=== PATIENT | male | born 1935 | race Caucasian/White ===

== ENCOUNTER 2016-05-17 14:32 | Inpatient (IN) | payer OTHER ==
[2016-05-17] MEDS ORDERED: ALBUTEROL SO4 0.083% IH SOL 2.5 MG/3 ML VIAL.NEB. NEB ONE ×2 (14:44→15:07)
--- NOTE | 2016-05-17 14:59 | PDOC ---
History of Present Illness - History of Present Illness Initial Comments: 05/17/16 15:07 The patient is a 81 year old male with a PHx of BPH, HTN, HLD, CHF, COPD (2 L nasal cannula), gout, GERD who presents to the ED with a productive cough for 3- 4 days and bilateral lower extremity edema for 2 days. Per , the patient seems short of breath and is working harder to breathe. The patient denies fever , chills, nausea, vomiting, diarrhea. He denies chest pain. PCP/Drawing In Machine Tender Helper: Dr. Juli Dove <Berkley Shields - Last Filed: 05/17/16 15:07> - General History Source: Patient Exam Limitations: No Limitations <Darius Pta - Last Filed: 05/17/16 17:40> - General Chief Complaint: Shortness of Breath Stated Complaint: SHORTNESS OF BREATH,EDEMA LE,COUGH Time Seen by Provider: 05/17/16 14:36 Past History <Berkley Shields - Last Filed: 05/17/16 15:07> - Past Medical History Anemia: No Asthma: Yes (2005) Cancer: No Cardiac Disorders: Yes (AORTIC STENOSIS,CARDIOMYOPATHY,CHF,AFIB/FLUTTER) CVA: No COPD: Yes (2005) CHF: Yes Dementia: No Diabetes: No GI Disorders: No Disorders: Yes (BPH) HTN: Yes Hypercholesterolemia: Yes Liver Disease: No Seizures: No Thyroid Disease: No - Surgical History Abdominal Surgery: No Appendectomy: Yes () Cardiac Surgery: No Cholecystectomy: No Lung Surgery: No Neurologic Surgery: No Orthopedic Surgery: No - Psycho/Social/Smoking Cessation Hx Anxiety: No Suicidal Ideation: No Smoking History: Former smoker Have you smoked in the past 12 months: No Number of Cigarettes Smoked Daily: 0 If you are a former smoker, when did you quit?: YEARS AGO Information on smoking cessation initiated: No Hx Alcohol Use: No Drug/Substance Use Hx: No Substance Use Type: None Hx Substance Use Treatment: No <Darius Pat - Last Filed: 05/17/16 17:40> - Past Medical History Allergies/Adverse Reactions: Allergies Allergy/AdvReac Type Severity Reaction Status Date / Time No Known Drug Allergies Allergy Verified 05/17/16 14:33 Home Medications: Ambulatory Orders Atorvastatin Ca [Lipitor] 40 mg PO HS 10/14/11 Budesonide/Formeterol Fumarate [SYMBICORT 160/4.5mcg -] 1 dose IH DAILY Losartan Potassium [Cozaar] 50 mg PO DAILY 10/14/11 Potassium Chloride [Klor-Con] 20 meq PO DAILY 10/14/11 Terazosin HCl 2 mg PO HS 10/14/11 Tiotropium [place] [Spiriva] 1 inh IH DAILY 10/14/11 Furosemide [Lasix -] 60 mg PO DAILY 09/29/13 Colchicine 0.6 mg PO DAILY #5 tablet 12/09/13 Diltiazem HCl [Diltiazem 24Hr Cd] 240 mg PO DAILY 11/26/14 Albuterol Sulfate Inhaler - [Ventolin Hfa Inhaler -] 1 inh PO QID 05/17/16 Cilostazol [Pletal -] 100 mg PO DAILY 05/17/16 Warfarin Sodium [Coumadin] 5.5 mg PO HS 05/17/16 Review of Systems - Review of Systems Comments:: 05/17/16 15:07 GENERAL/CONSTITUTIONAL: No fever or chills. No weakness. HEAD, EYES, EARS, NOSE AND THROAT: No change in vision. No ear pain or discharge. No sore throat. CARDIOVASCULAR: +shortness of breath, bilateral lower extremity edema. No chest pain RESPIRATORY: + productive cough, No wheezing, or hemoptysis. GASTROINTESTINAL: No nausea, vomiting, diarrhea or constipation. GENITOURINARY: No dysuria, frequency, or change in urination. MUSCULOSKELETAL: No joint or muscle swelling or pain. No neck or back pain. SKIN: No rash NEUROLOGIC: No headache, vertigo, loss of consciousness, or change in strength/ sensation. ENDOCRINE: No increased thirst. No abnormal weight change. HEMATOLOGIC/LYMPHATIC: No anemia, easy bleeding, or history of blood clots. ALLERGIC/IMMUNOLOGIC: No hives or skin allergy. <Berkley Shields - Last Filed: 05/17/16 15:07> *Physical Exam - Vital Signs Last Vital Signs Temp Pulse Resp BP Pulse Ox 98.2 F 75 20 161/81 90 L 05/17/16 14:33 05/17/16 14:33 05/17/16 14:33 05/17/16 14:33 05/17/16 14:33 - Physical Exam Comments: 05/17/16 15:07 GENERAL: Awake, alert, and fully oriented, in no acute distress HEAD: No signs of trauma EYES: PERRLA, EOMI, sclera anicteric, conjunctiva clear ENT: Auricles normal inspection, hearing grossly normal, nares patent, oropharynx clear without exudates. Moist mucosa NECK: Normal ROM, supple, no lymphadenopathy, JVD, or masses LUNGS: Rales at the bases, bilaterally. Tachypneic to mid 20s. No wheezes, and no crackles HEART: Regular rate and rhythm, normal S1 and S2, no murmurs, rubs or gallops ABDOMEN: Soft, nontender, normoactive bowel sounds. No guarding, no rebound. No masses EXTREMITIES: 2+ pitting edema in bilateral lower extremities. Normal range of motion. No clubbing or cyanosis. No cords, erythema, or tenderness NEUROLOGICAL: Cranial nerves II through XII grossly intact. Normal speech, normal gait SKIN: Warm, Dry, normal turgor, no rashes or lesions noted. <Berkley Shields - Last Filed: 05/17/16 15:07> - Vital Signs Last Vital Signs Temp Pulse Resp BP Pulse Ox 98.2 F 75 20 161/81 90 L 05/17/16 14:33 05/17/16 14:33 05/17/16 14:33 05/17/16 14:33 05/17/16 14:33 <Darius Pat - Last Filed: 05/17/16 17:40> Heart Score/ECG Review #1 ECG reviewed & interpreted by me at: 14:35 05/17/16 15:09 NSR with 1st degree AV block AL 268 msec, Q wave III, TWI V3-V6, no std/pamela, TWI I, avL, QTC 450 msec <Darius Pat - Last Filed: 05/17/16 17:40> ED Treatment Course - LABORATORY CBC & Chemistry Diagram: 05/17/16 15:00 05/17/16 15:00 <Darius Pat - Last Filed: 05/17/16 17:40> Medical Decision Making - Medical Decision Making 05/17/16 15:17 A portion of this note was documented by scribe services under my direction. I have reviewed the details of the note, within reason, and agree with the documentation with the following case summary and management plan written by me. Patient treated in the ED. Nursing notes are reviewed and incorporated into the medical decision-making. Vital signs reviewed. Peripheral IV access obtained by the nurse, laboratory studies are drawn and sent, reviewed and interpreted by myself. Vital Signs Temp Pulse Resp BP Pulse Ox 98.2 F 75 20 161/81 90 L 05/17/16 14:33 05/17/16 14:33 05/17/16 14:33 05/17/16 14:33 05/17/16 14:33 81-year-old male with past medical history of hypertension, hyperlipidemia, congestive heart failure on Lasix 60 mg daily, COPD on 2 L nasal cannula at home , BiPAP at night presents with cough and shortness of breath for 4 days. The patient has noted some clearish productive cough in addition to increasing lower extremity edema and increasing shortness of breath. Denies chest pain or fevers or sick contacts. He reports adherence to his medications. We will need to rule out CHF given that he has lower extremity edema plus bibasilar rales. We'll also obtain blood cultures and a chest x-ray to rule out pneumonia. Within the differential is COPD, acute coronary syndrome. Will ultimately need to admit the patient to the hospital for further evaluation. Patient was on room air 79% but improved to 90% on 4 L nasal cannula. 05/17/16 17:39 CBC, BMP 05/17/16 15:00 05/17/16 15:00 CMP Sodium 141 mmol/L (136-145) 05/17/16 15:00 Potassium 3.2 mmol/L (3.5-5.1) L 05/17/16 15:00 Chloride 94 mmol/L (98-107) L 05/17/16 15:00 Carbon Dioxide 37 mmol/L (22-28) H 05/17/16 15:00 Anion Gap 10 (8-16) 05/17/16 15:00 BUN 18 mg/dl (7-18) 05/17/16 15:00 Creatinine 1.2 mg/dl (0.6-1.3) D 05/17/16 15:00 Creat Clearance w eGFR 58.40 (>60) 05/17/16 15:00 Random Glucose 93 mg/dl (74-106) D 05/17/16 15:00 Lactic Acid 1.278 mmol/L (0.4-2.0) 05/17/16 15:00 Calcium 8.8 mg/dl (8.4-10.2) 05/17/16 15:00 Magnesium 1.8 mg/dL (1.8-2.4) 05/17/16 15:00 Total Bilirubin 0.4 mg/dl (0.2-1.0) 05/17/16 15:00 AST 18 U/L (10-42) 05/17/16 15:00 ALT 14 U/L (10-40) D 05/17/16 15:00 Alkaline Phosphatase 74 U/L (32-92) 05/17/16 15:00 Creatine Kinase 61 IU/L (38-174) 05/17/16 15:15 Troponin I 0.03 ng/ml (0.03-0.50) 05/17/16 15:15 B-Natriuretic Peptide 439.13 pg/ml (5-450) 05/17/16 15:00 Total Protein 6.5 g/dl (6.4-8.3) 05/17/16 15:00 Albumin 3.7 g/dl (3.5-5.0) 05/17/16 15:00 Labs reviewed. Pt given 60 mg IV lasix. Chest xray reviewed by me, pending official read. Appears to have pulmonary congestion. Seems to be breathing more comfortably at 4L NC with O2 saturation of 90% and with lasix. Also noted with mild hypokalemia. Oral repletion ordered. Case discussed with DR. Parks. Will admit to telemetry admission. Case discussed in detail with admitting physician including history, physical exam and ancillary studies. Admitting physician has assumed care for the patient, will follow all pending diagnostics and will complete the evaluation and treatment. <Darius Pat - Last Filed: 05/17/16 17:40> *DC/Admit/Observation/Transfer - Attestations Scribe Attestion: 05/17/16 15:07 Documentation prepared by Berkley Shields, acting as director global medical affairs for Darius Pat MD. <Berkley Shields - Last Filed: 05/17/16 15:07> - Discharge Dispostion Admit: Yes <Darius Pat - Last Filed: 05/17/16 17:40> Diagnosis at time of Disposition: Shortness of breath - Discharge Dispostion Condition at time of disposition: Fair
[2016-05-17 15:14] LABS: BASOPHIL 0.7 % (0-2.0); EOSINOPHIL 1.7 % (0-4.5); MCH 26.5 pg (25.7-33.7); MCHC 32.8 g/dl (32.0-35.9); MEAN CELL VOLUME 80.8 fl (80-96); MEAN PLT VOLUME 7.1 fl (7.5-11.1); PLATELET COUNT 272 K/MM3 (134-434); RDW 15.9 % (11.9-15.9); WHITE BLOOD COUNT 6.4 K/mm3 (4.0-10.0)
[2016-05-17 15:28] LABS: ACTIVATED PTT 34.5 SECONDS (24.0-38.9)
[2016-05-17 15:52] LABS: INR 1.77 (0.82-1.09); PROTHROMBIN TIME (PATIENT) 19.6 SEC (10.2-13.0)
[2016-05-17 15:53] LABS: ALBUMIN 3.7 g/dl (3.5-5.0); ALK PHOS 74 U/L (32-92); ANION GAP 10 (8-16); BILIRUBIN,TOTAL 0.4 mg/dl (0.2-1.0); CO2 37 mmol/L (22-28); CREATININE 1.2 mg/dl (0.6-1.3); GLUCOSE,RANDOM 93 mg/dl (74-106); MAGNESIUM 1.8 mg/dL (1.8-2.4); SGOT/AST 18 U/L (10-42); SGPT/ALT 14 U/L (10-40); TOT PROT 6.5 g/dl (6.4-8.3)
[2016-05-17 16:22] LABS: CALCIUM 8.8 mg/dl (8.4-10.2)
[2016-05-17] MEDS ORDERED: FUROSEMIDE 40 MG/4 ML INJECTABLE VIAL IVPUSH ONE (16:34)
[2016-05-17] MEDS ORDERED: POTASSIUM CHLORIDE TABS 20 MEQ TABLET.ER (FP) PO ONE ×2 (16:34→16:42)
[2016-05-17] MEDS ORDERED: FUROSEMIDE 40 MG/4 ML INJECTABLE VIAL ONE (16:42)
[2016-05-17 17:13] LABS: TROPONIN I (DFP) 0.03 ng/ml (0.03-0.50)
[2016-05-17 18:08] LABS: URINE APPEARANCE Clear; URINE BILIRUBIN Negative (NEGATIVE); URINE BLOOD Negative (NEGATIVE); URINE GLUCOSE (UA) Negative (NEGATIVE); URINE KETONE Negative (NEGATIVE); URINE LEUK ESTERASE Negative (NEGATIVE); URINE NITRITE Negative (NEGATIVE); URINE UROBILINOGEN 1.0 E.U/dl (0.2-1.0)
[2016-05-17 18:12] LABS: URINE COLOR YELLOW; URINE PROTEIN 2+ (NEGATIVE)
[2016-05-17 18:49] LABS: URINE BACTERIA FEW /hpf (NEGATIVE); URINE RBC 0-2 /hpf (0-3); URINE WBC 0-1 (3-5)
[2016-05-17 23:46] VITALS: BMI 35.2
--- NOTE | 2016-05-17 23:49 | HP ---
Admitting History and Physical - Primary Care Physician PCP: Nicholas Parks - Admission Chief Complaint: sob History of Present Illness: The patient is a 81 year old male with a PHx of BPH, HTN, HLD, CHF, COPD (2 L nasal cannula), gout, GERD who presents to the ED with a productive cough for 3- 4 days and bilateral lower extremity edema for 2 days. Per , the patient seems short of breath and is working harder to breathe. The patient denies fever , chills, nausea, vomiting, diarrhea. He denies chest pain. PCP/Chef Assistant: Dr. Juli Dove - Past Medical History Cardiovascular: Yes: CHF, HTN, Hyperlipdemia Pulmonary: Yes: COPD Renal/: Yes: BPH - Advance Directives Advance Directives: Yes: Health Care Proxy - Smoking History Smoking history: Former smoker Have you smoked in the past 12 months: No Aproximately how many cigarettes per day: 0 If you are a former smoker, when did you quit?: YEARS AGO - Alcohol/Substance Use Hx Alcohol Use: No Home Medications - Allergies Allergies/Adverse Reactions: Allergies Allergy/AdvReac Type Severity Reaction Status Date / Time No Known Drug Allergies Allergy Verified 05/17/16 14:33 - Home Medications Home Medications: Ambulatory Orders Atorvastatin Ca [Lipitor] 40 mg PO HS 10/14/11 Budesonide/Formeterol Fumarate [SYMBICORT 160/4.5mcg -] 1 dose IH DAILY Losartan Potassium [Cozaar] 50 mg PO DAILY 10/14/11 Potassium Chloride [Klor-Con] 20 meq PO DAILY 10/14/11 Terazosin HCl 2 mg PO HS 10/14/11 Tiotropium [place] [Spiriva] 1 inh IH DAILY 10/14/11 Colchicine 0.6 mg PO DAILY #5 tablet 12/09/13 Diltiazem HCl [Diltiazem 24Hr Cd] 240 mg PO DAILY 11/26/14 Albuterol Sulfate Inhaler - [Ventolin HFA Inhaler -] 1 inh PO QID 05/17/16 Cilostazol [Pletal -] 100 mg PO DAILY 05/17/16 Warfarin Sodium [Coumadin] 5.5 mg PO HS 05/17/16 Furosemide [Lasix -] 80 mg PO DAILY #60 tablet 05/19/16 Physical Examination Vital Signs: Vital Signs Temperature 98.5 F 05/17/16 22:23 Pulse Rate 62 05/17/16 22:23 Respiratory Rate 20 05/17/16 22:23 Blood Pressure 139/75 05/17/16 22:23 O2 Sat by Pulse Oximetry (%) 95 05/17/16 22:23 Constitutional: Yes: No Distress Neck: Yes: Supple Cardiovascular: Yes: Regular Rate and Rhythm Respiratory: Yes: Rhonchi Gastrointestinal: Yes: Normal Bowel Sounds Extremities: Yes: WNL Neurological: Yes: Alert, Oriented Problem List - Problems (1) Shortness of breath Assessment/Plan: could be fluid overload on lasix prn duo nebs Code(s): R06.02 - SHORTNESS OF BREATH (2) Gout of big toe Assessment/Plan: on meds stable Code(s): M10.9 - GOUT, UNSPECIFIED (3) Hypokalemia Assessment/Plan: on po K Code(s): E87.6 - HYPOKALEMIA (4) Leg edema, left Code(s): R60.0 - LOCALIZED EDEMA (5) HTN (hypertension) Assessment/Plan: stable on meds Code(s): I10 - ESSENTIAL (PRIMARY) HYPERTENSION (6) Hypokalemia due to loss of potassium Assessment/Plan: on replacemet resolving Code(s): E87.6 - HYPOKALEMIA (7) CHF (congestive heart failure) Assessment/Plan: on diuretics cardiology consult Code(s): I50.9 - HEART FAILURE, UNSPECIFIED (8) COPD (chronic obstructive pulmonary disease) Assessment/Plan: duo nebs prn Code(s): J44.9 - CHRONIC OBSTRUCTIVE PULMONARY DISEASE, UNSPECIFIED Assessment/Plan Laboratory Tests 05/17/16 05/17/16 05/17/16 15:00 15:00 15:00 WBC 6.4 RBC 4.95 Hgb 13.1 Hct 39.9 MCV 80.8 MCHC 32.8 RDW 15.9 Plt Count 272 D MPV 7.1 L Neutrophils % 67.0 Lymphocytes % 20.1 Monocytes % 10.5 H Eosinophils % 1.7 Basophils % 0.7 INR 1.77 H PTT (Actin FS) 34.5 Sodium 141 Potassium 3.2 L Chloride 94 L Carbon Dioxide 37 H Anion Gap 10 BUN 18 Creatinine 1.2 D Creat Clearance w eGFR 58.40 Random Glucose 93 D Lactic Acid Calcium 8.8 Magnesium 1.8 Total Bilirubin 0.4 AST 18 ALT 14 D Alkaline Phosphatase 74 Creatine Kinase Cancelled Troponin I Cancelled B-Natriuretic Peptide 439.13 Total Protein 6.5 Albumin 3.7 Urine Color Urine Appearance Urine pH Ur Specific [place] Urine Protein Urine Glucose (UA) Urine Ketones Urine Blood Urine Nitrite Urine Bilirubin Urine Urobilinogen Ur Leukocyte Esterase Urine RBC Urine WBC Urine Bacteria 05/17/16 05/17/16 05/17/16 15:00 15:15 18:00 WBC RBC Hgb Hct MCV MCHC RDW Plt Count MPV Neutrophils % Lymphocytes % Monocytes % Eosinophils % Basophils % INR PTT (Actin FS) Sodium Potassium Chloride Carbon Dioxide Anion Gap BUN Creatinine Creat Clearance w eGFR Random Glucose Lactic Acid 1.278 Calcium Magnesium Total Bilirubin AST ALT Alkaline Phosphatase Creatine Kinase 61 Troponin I 0.03 B-Natriuretic Peptide Total Protein Albumin Urine Color Yellow Urine Appearance Clear Urine pH 7.0 D Ur Specific [place] 1.015 Urine Protein 2+ H Urine Glucose (UA) Negative Urine Ketones Negative Urine Blood Negative Urine Nitrite Negative Urine Bilirubin Negative Urine Urobilinogen 1.0 e.u/dl Ur Leukocyte Esterase Negative Urine RBC 0-2 Urine WBC 0-1 Urine Bacteria Few 05/18/16 05/18/16 00:15 15:48 WBC RBC Hgb Hct MCV MCHC RDW Plt Count MPV Neutrophils % Lymphocytes % Monocytes % Eosinophils % Basophils % INR PTT (Actin FS) Sodium 141 Potassium 3.5 Chloride 93 L Carbon Dioxide 40 H Anion Gap 8 BUN 18 Creatinine 1.2 Creat Clearance w eGFR Random Glucose 101 Lactic Acid Calcium 8.9 Magnesium Total Bilirubin AST ALT Alkaline Phosphatase Creatine Kinase 63 Troponin I 0.04 B-Natriuretic Peptide Total Protein Albumin Urine Color Urine Appearance Urine pH Ur Specific [place] Urine Protein Urine Glucose (UA) Urine Ketones Urine Blood Urine Nitrite Urine Bilirubin Urine Urobilinogen Ur Leukocyte Esterase Urine RBC Urine WBC Urine Bacteria Active Medications Generic Name Dose Route Start Last Admin Trade Name Freq PRN Reason Stop Dose Admin Aclidinium [place] 1 puff 05/18/16 10:00 05/18/16 21:28 Tudorza - IH 1 puff BID GABRIEL Administration Albuterol Sulfate 1 puff 05/18/16 00:00 05/18/16 17:51 Ventolin Hfa Inhaler - IH 1 puff QIDR GABRIEL Administration Atorvastatin Calcium 40 mg 05/18/16 22:00 05/18/16 21:28 Lipitor - PO 40 mg HS AGBRIEL Administration Cilostazol 100 mg 05/18/16 10:00 05/18/16 10:13 Pletal - PO 100 mg DAILY GABRIEL Administration Colchicine 0.6 mg 05/18/16 10:00 05/18/16 10:12 Colcrys - PO 0.6 mg DAILY GABRIEL Administration Diltiazem HCl 240 mg 05/18/16 10:00 05/18/16 10:12 Cardizem Cd - PO 240 mg DAILY GABRIEL Administration Furosemide 80 mg 05/19/16 10:00 Lasix - PO DAILY GABRIEL Losartan Potassium 50 mg 05/18/16 10:00 05/18/16 10:12 Cozaar - PO 50 mg DAILY GABRIEL Administration Potassium Chloride 20 meq 05/18/16 10:00 05/18/16 10:12 K-Dur - PO 20 meq DAILY GABRIEL Administration Terazosin HCl 2 mg 05/18/16 22:00 05/18/16 21:28 Hytrin - PO 2 mg HS GABRIEL Administration Warfarin Sodium 2.5 mg/ 5.5 mg 05/18/16 18:00 05/18/16 17:52 Warfarin Sodium 3 mg PO 5.5 mg DAILY@1800 GABRIEL Administration
[2016-05-18 01:41] LABS: TROPONIN I 0.04 ng/ml (0.00-0.05)
--- NOTE | 2016-05-18 09:24 | EKG ---
Test Reason : Blood Pressure : / mmHG Vent. Rate : 074 BPM Atrial Rate : 074 BPM P-R Int : 268 ms QRS Dur : 102 ms QT Int : 406 ms P-R-T Axes : 000 -15 065 degrees QTc Int : 450 ms ATRIAL FLUTTER INFERIOR INFARCT , AGE UNDETERMINED NONSPECIFIC ST AND T WAVE ABNORMALITY RSR' OR QR PATTERN IN V1 SUGGESTS RIGHT VENTRICULAR CONDUCTION DELAY ABNORMAL ECG WHEN COMPARED WITH ECG OF 19-MAR-2009 14:01, PREMATURE VENTRICULAR COMPLEXES ARE NO LONGER PRESENT Atrial flutter has replaced sinus rhythm Confirmed by STALIN PERSON MD ([id number]) on 05/18/2016 9:24:38 AM Referred By: HARITHA HILL Confirmed By:STALIN PERSON MD
[2016-05-18] MEDS ORDERED: FUROSEMIDE 40 MG TABLET (FP) PO SCH (10:00)
[2016-05-18] MEDS ORDERED: PT OWN MED DRAWER 7, Y5N ONE ×3 (10:03→21:27)
[2016-05-18] MEDS: LOSARTAN POTASSIUM 50 MG TABLET (FP) PO SCH (10:12)
[2016-05-18] MEDS: POTASSIUM CHLORIDE TABS 20 MEQ TABLET.ER (FP) PO SCH (10:12)
[2016-05-18] MEDS: COLCHICINE 0.6 MG TABLET (FP) PO SCH (10:12)
[2016-05-18] MEDS: ACLIDINIUM BROMIDE 400 MCG/INH AERO.POWD IH SCH ×2 (10:13→21:28)
[2016-05-18] MEDS: CILOSTAZOL 100 MG TABLET PO SCH (10:13)
--- NOTE | 2016-05-18 13:45 | CON.CARD ---
Consult Consult Specialty:: Cardiology Referred by:: Dr. Darius Pat Reason for Consultation:: CHF - History of Present Illness Chief Complaint: SOB/cough History of Present Illness: 81 yo male with HTN, afib/flutter, hyperlipidemia, COPD (on home oxygen), moderate aortic stenosis, and diastolic CHF (HFpEF), who was admitted with dyspnea, edema, and productive cough for the past several days. He denies chest pain, fevers, chills, nausea, vomiting, diarrhea. ECG on admission demonstrated atrial flutter (rate controlled). Trops (-) x2, BNP 439. CXR on admission was poor portable film with suggestion of bilateral pleural fluid. Patient recieved furosemide 60 mg IV x1 in ED. Currently reports improvement in his dyspnea, but still has some leg edema. PCP/Solderer Dipper: Dr. Juli Dove - History Source History Provided By: Patient Limitations to Obtaining History: No Limitations - Past Medical History Cardio/Vascular: Yes: AFIB (atrial fibrillation/flutter), Aortic Stenosis ( moderate), CHF (HFpEF), HTN, Hyperlipdemia Pulmonary: Yes: COPD, Sleep Apnea Gastrointestinal: Yes: GI Bleed (2013) Musculoskeletal: Yes: Osteoarthritis Rheumatology: Yes: Gout Additional Medical History: Cataracts, obesity - Past Surgical History Additional Surgical History: Surgery for kyphosis 11/2014, laminectomy 01/2015 - Alcohol/Substance Use Hx Alcohol Use: No History of Substance Use: reports: None - Smoking History Smoking history: Former smoker Have you smoked in the past 12 months: No Aproximately how many cigarettes per day: 0 If you are a former smoker, when did you quit?: YEARS AGO Home Medications - Allergies Allergies/Adverse Reactions: Allergies Allergy/AdvReac Type Severity Reaction Status Date / Time No Known Drug Allergies Allergy Verified 05/17/16 14:33 - Home Medications Home Medications: Ambulatory Orders Atorvastatin Ca [Lipitor] 40 mg PO HS 10/14/11 Budesonide/Formeterol Fumarate [SYMBICORT 160/4.5mcg -] 1 dose IH DAILY Losartan Potassium [Cozaar] 50 mg PO DAILY 10/14/11 Potassium Chloride [Klor-Con] 20 meq PO DAILY 10/14/11 Terazosin HCl 2 mg PO HS 10/14/11 Tiotropium [place] [Spiriva] 1 inh IH DAILY 10/14/11 Furosemide [Lasix -] 60 mg PO DAILY 09/29/13 Colchicine 0.6 mg PO DAILY #5 tablet 12/09/13 Diltiazem HCl [Diltiazem 24Hr Cd] 240 mg PO DAILY 11/26/14 Albuterol Sulfate Inhaler - [Ventolin Hfa Inhaler -] 1 inh PO QID 05/17/16 Cilostazol [Pletal -] 100 mg PO DAILY 05/17/16 Warfarin Sodium [Coumadin] 5.5 mg PO HS 05/17/16 Family Disease History - Family Disease History Family History: Unremarkable (no premature CAD or SCD) Review of Systems - Review of Systems Constitutional: reports: No Symptoms Eyes: reports: No Symptoms HENT: reports: No Symptoms Neck: reports: No Symptoms Cardiovascular: reports: Edema, Shortness of Breath Respiratory: reports: SOB Gastrointestinal: reports: No Symptoms Genitourinary: reports: No Symptoms Musculoskeletal: reports: No Symptoms Integumentary: reports: No Symptoms Neurological: reports: No Symptoms Endocrine: reports: No Symptoms Hematology/Lymphatic: reports: No Symptoms Psychiatric: reports: No Symptoms Vital Signs: Vital Signs Temperature 97.9 F 05/18/16 09:29 Pulse Rate 69 05/18/16 09:29 Respiratory Rate 18 05/18/16 09:29 Blood Pressure 138/76 05/18/16 09:29 O2 Sat by Pulse Oximetry (%) 92 L 05/18/16 08:19 Constitutional: Yes: No Distress, Obese Eyes: Yes: Conjunctiva Clear, EOM Intact, PERRL HENT: Yes: Atraumatic, Normocephalic Respiratory: Yes: CTA Bilaterally Gastrointestinal: Yes: Normal Bowel Sounds, Soft. No: Tenderness Cardiovascular: Yes: Regular Rate and Rhythm JVD: Yes Carotid Bruit: No Heart Sounds: Yes: S1, S2 Murmur: Yes: Systolic Murmur, Grade 2 Edema: Yes Edema: LLE: 1+, RLE: 1+ Neurological: Yes: Alert, Oriented, Cran Nerves II-XII Intact ...Motor Strength: WNL Psychiatric: Yes: WNL - Other Data Labs, Other Data: INR, PTT INR 1.77 (0.82-1.09) H 05/17/16 15:00 Troponin, BNP 05/18/16 00:15 Troponin I 0.04 Troponin, BNP 05/18/16 00:15 Troponin I 0.04 05/17/16 ECG: Atrial flutter, rate 76 bpm, cannot rule out inferior infarct, non- specific ST-T abnormalities Echo: Report Reviewed (05/18/16 Echo: Normal LV size and systolic function, LVEF 55-60%. Grade I diastolic dysfunction. Severe LA enlargement. Moderate (NICOLE 1.2 cm2, mean grad 19.4 mmHg). Mild MR/TR. Mild pulm HTN with PASP 46 mmHg.), Image Reviewed Assessment/Plan 81 yo male with HTN, afib/flutter, hyperlipidemia, COPD (on home oxygen), moderate aortic stenosis, and diastolic CHF (HFpEF), who was admitted with probable diastolic CHF (HFpEF) exacerbation. ECG on admission demonstrated atrial flutter (rate controlled). Trops (-) x2, BNP 439. CXR on admission was poor portable film with suggestion of bilateral pleural fluid. Received furosemide 60 mg IV x1 in ED on 05/17. Echo today demonstrated LVEF 55-60%, grade I diastolic dysfunction, moderate , and mild pulm HTN (PASP 46 mmHg). RECS: Will continue diuresis with furosemide 80 mg po daily. Check BMP to assess lytes and renal function with diuresis. Repeat PA and lateral CXR to better evaluate lung knott. Will continue coumadin for afib/flutter thromboembolic prophylaxis. Goal INR 2- 3. Monitor INR. Will continue diltiazem CD 240 mg po daily, losartan 50 mg po daily, and atorvastatin 40 mg po daily. Will follow. Call with questions. If patient is clinically improved by tomorrow, may be discharged with outpatient follow-up in our office in 2-3 weeks.
[2016-05-18] MEDS ORDERED: FUROSEMIDE 40 MG/4 ML INJECTABLE VIAL IVPUSH ONE (14:18)
[2016-05-18] MEDS: ALBUTEROL SO4 6.7 GM HFA INHALER IH SCH ×2 (15:00→17:51)
[2016-05-18 16:53] LABS: ANION GAP 8 (8-16); CALCIUM 8.9 mg/dl (8.4-10.2); CO2 40 mmol/L (22-28); CREATININE 1.2 mg/dl (0.6-1.3); GLUCOSE,RANDOM 101 mg/dl (74-106)
[2016-05-18] MEDS ORDERED: WARFARIN NA 3 MG TABLET ONE (17:18)
[2016-05-18] MEDS ORDERED: WARFARIN NA 2.5 MG TABLET (FP) ONE (17:18)
[2016-05-18] MEDS: WARFARIN NA 2.5 MG, WARFARIN NA 3 MG PO SCH (17:52)
[2016-05-18] MEDS ORDERED: WARFARIN NA 5 MG TABLET (UD) PO SCH (22:00)
[2016-05-18] MEDS ORDERED: TERAZOSIN HCL 2 MG CAPSULE PO SCH (22:00)
[2016-05-18] MEDS ORDERED: ATORVASTATIN CA 40 MG TABLET (FP) PO SCH (22:00)
[2016-05-18 22:07] VITALS: PULSE 72
--- NOTE | 2016-05-18 22:14 | PN ---
Progress Note, Physician - Current Medication List Current Medications: Active Medications Aclidinium [place] (Tudorza -) 1 puff IH BID [facility] Last Admin: 05/18/16 21:28 Dose: 1 puff Albuterol Sulfate (Ventolin Hfa Inhaler -) 1 puff IH QIDR [facility] Last Admin: 05/18/16 17:51 Dose: 1 puff Atorvastatin Calcium (Lipitor -) 40 mg PO HS [facility] Last Admin: 05/18/16 21:28 Dose: 40 mg Cilostazol (Pletal -) 100 mg PO DAILY [facility] Last Admin: 05/18/16 10:13 Dose: 100 mg Colchicine (Colcrys -) 0.6 mg PO DAILY [facility] Last Admin: 05/18/16 10:12 Dose: 0.6 mg Diltiazem HCl (Cardizem Cd -) 240 mg PO DAILY [facility] Last Admin: 05/18/16 10:12 Dose: 240 mg Furosemide (Lasix -) 80 mg PO DAILY [facility] Losartan Potassium (Cozaar -) 50 mg PO DAILY [facility] Last Admin: 05/18/16 10:12 Dose: 50 mg Potassium Chloride (K-Dur -) 20 meq PO DAILY [facility] Last Admin: 05/18/16 10:12 Dose: 20 meq Terazosin HCl (Hytrin -) 2 mg PO HS [facility] Last Admin: 05/18/16 21:28 Dose: 2 mg Warfarin Sodium 2.5 mg/ (Warfarin Sodium 3 mg) 5.5 mg PO DAILY@1800 [facility] Last Admin: 05/18/16 17:52 Dose: 5.5 mg - Objective Vital Signs: Vital Signs Temperature 99.0 F 05/18/16 22:06 Pulse Rate 72 05/18/16 22:06 Respiratory Rate 18 05/18/16 22:06 Blood Pressure 149/88 05/18/16 22:06 O2 Sat by Pulse Oximetry (%) 93 L 05/18/16 22:06 Constitutional: Yes: No Distress HENT: Yes: Atraumatic Neck: Yes: Supple Cardiovascular: Yes: Regular Rate and Rhythm Respiratory: Yes: Rhonchi Gastrointestinal: Yes: Normal Bowel Sounds Extremities: Yes: WNL Neurological: Yes: Alert, Oriented Labs: CBC, BMP 05/18/16 15:48 INR, PTT INR 1.77 (0.82-1.09) H 05/17/16 15:00 Problem List - Problems (1) Shortness of breath Assessment/Plan: could be fluid overload on lasix prn duo nebs Code(s): R06.02 - SHORTNESS OF BREATH (2) Gout of big toe Assessment/Plan: on meds stable Code(s): M10.9 - GOUT, UNSPECIFIED (3) Hypokalemia Code(s): E87.6 - HYPOKALEMIA (4) Leg edema, left Code(s): R60.0 - LOCALIZED EDEMA (5) HTN (hypertension) Assessment/Plan: stable on [facility] meds stable Code(s): I10 - ESSENTIAL (PRIMARY) HYPERTENSION (6) Hypokalemia due to loss of potassium Assessment/Plan: on replacemet resolving Code(s): E87.6 - HYPOKALEMIA (7) CHF (congestive heart failure) Assessment/Plan: on diuretics cardiology consult Code(s): I50.9 - HEART FAILURE, UNSPECIFIED (8) COPD (chronic obstructive pulmonary disease) Assessment/Plan: duo nebs prn Code(s): J44.9 - CHRONIC OBSTRUCTIVE PULMONARY DISEASE, UNSPECIFIED
[2016-05-19] MEDS ORDERED: ACETAMINOPHEN 325 MG TABLET (FP) ONE (01:33)
[2016-05-19] MEDS: ALBUTEROL SO4 6.7 GM HFA INHALER IH SCH ×3 (06:58→12:31)
[2016-05-19 08:45] LABS: INR 1.29 (0.82-1.09); PROTHROMBIN TIME (PATIENT) 14.4 SEC (10.2-13.0)
[2016-05-19 08:46] LABS: CALCIUM 8.9 mg/dl (8.4-10.2); COCKROFT - GAULT 35.94; CREATININE 1.2 mg/dl (0.6-1.3)
[2016-05-19] MEDS: LOSARTAN POTASSIUM 50 MG TABLET (FP) PO SCH (09:43)
[2016-05-19] MEDS: POTASSIUM CHLORIDE TABS 20 MEQ TABLET.ER (FP) PO SCH (09:43)
[2016-05-19] MEDS: COLCHICINE 0.6 MG TABLET (FP) PO SCH (09:44)
[2016-05-19] MEDS: ACLIDINIUM BROMIDE 400 MCG/INH AERO.POWD IH SCH (09:44)
[2016-05-19] MEDS: CILOSTAZOL 100 MG TABLET PO SCH (09:45)
[2016-05-19] MEDS ORDERED: FUROSEMIDE 40 MG TABLET (FP) PO SCH (10:00)
--- NOTE | 2016-05-19 12:59 | PN ---
Progress Note, Physician History of Present Illness: No new complaints. Dyspnea improved. Patient requesting to go home. - Current Medication List Current Medications: Active Medications Aclidinium [place] (Tudorza -) 1 puff IH BID [facility] Last Admin: 05/19/16 09:44 Dose: 1 puff Albuterol Sulfate (Ventolin Hfa Inhaler -) 1 puff IH QIDR [facility] Last Admin: 05/19/16 12:31 Dose: 1 puff Atorvastatin Calcium (Lipitor -) 40 mg PO HS [facility] Last Admin: 05/18/16 21:28 Dose: 40 mg Cilostazol (Pletal -) 100 mg PO DAILY [facility] Last Admin: 05/19/16 09:45 Dose: 100 mg Colchicine (Colcrys -) 0.6 mg PO DAILY [facility] Last Admin: 05/19/16 09:44 Dose: 0.6 mg Diltiazem HCl (Cardizem Cd -) 240 mg PO DAILY [facility] Last Admin: 05/19/16 09:43 Dose: 240 mg Furosemide (Lasix -) 80 mg PO DAILY [facility] Last Admin: 05/19/16 09:43 Dose: 80 mg Losartan Potassium (Cozaar -) 50 mg PO DAILY [facility] Last Admin: 05/19/16 09:43 Dose: 50 mg Potassium Chloride (K-Dur -) 20 meq PO DAILY [facility] Last Admin: 05/19/16 09:43 Dose: 20 meq Terazosin HCl (Hytrin -) [address] [facility] Last Admin: 05/18/16 21:28 Dose: 2 mg Warfarin Sodium 2.5 mg/ (Warfarin Sodium 3 mg) 5.5 mg PO DAILY@1800 [facility] Last Admin: 05/18/16 17:52 Dose: 5.5 mg - Objective Vital Signs: Vital Signs Temperature 99.0 F 05/18/16 22:06 Pulse Rate 72 05/18/16 22:06 Respiratory Rate 18 05/19/16 08:38 Blood Pressure 149/88 05/18/16 22:06 O2 Sat by Pulse Oximetry (%) 93 L 05/19/16 08:38 Constitutional: Yes: No Distress Eyes: Yes: Conjunctiva Clear, EOM Intact HENT: Yes: Atraumatic, Normocephalic Cardiovascular: Yes: Regular Rate and Rhythm. No: JVD Respiratory: Yes: CTA Bilaterally Gastrointestinal: Yes: Normal Bowel Sounds, Soft Edema: LLE: 1+, RLE: 1+ Neurological: Yes: Alert, Oriented, Cran Nerves II-XII Intact Labs: CBC, BMP 05/19/16 07:33 INR, PTT INR 1.29 (0.82-1.09) H 05/19/16 07:33 Assessment/Plan 81 yo male with HTN, afib/flutter, hyperlipidemia, COPD (on home oxygen), moderate aortic stenosis, and diastolic CHF (HFpEF), who was admitted with probable diastolic CHF (HFpEF) exacerbation. ECG on admission demonstrated atrial flutter (rate controlled). Trops (-) x2, BNP 439. CXR on admission was poor portable film with suggestion of bilateral pleural fluid. Received furosemide 60 mg IV x1 in ED on 05/17. Echo on 05/18/16 demonstrated LVEF 55-60%, grade I diastolic dysfunction, moderate , and mild pulm HTN (PASP 46 mmHg). RECS: Continue furosemide 80 mg po daily. Continue coumadin for afib/flutter thromboembolic prophylaxis. Goal INR 2-3. Monitor INR and adjust as needed. Will continue diltiazem CD 240 mg po daily, losartan 50 mg po daily, and atorvastatin 40 mg po daily. Patient may be discharged from cardiac standpoint given clinical improvement on current medical regimen. He will need to follow-up with Dr. Tapia in 2 weeks. At that time, will need to address continuation of coumadin versus initiation of NOAC given question of patient's medical compliance. Will see prn. Please call with questions.
[2016-05-19 14:03] VITALS: BP 144/86; TEMP 98.3
--- NOTE | 2016-05-19 15:22 | DS ---
Physical Examination Vital Signs: Vital Signs Temperature 98.3 F 05/19/16 14:01 Pulse Rate 72 05/19/16 14:01 Respiratory Rate 20 05/19/16 14:01 Blood Pressure 144/86 05/19/16 14:01 O2 Sat by Pulse Oximetry (%) 90 L 05/19/16 14:01 Constitutional: Yes: No Distress HENT: Yes: Atraumatic Neck: Yes: Supple Cardiovascular: Yes: Regular Rate and Rhythm Respiratory: Yes: CTA Bilaterally Gastrointestinal: Yes: Normal Bowel Sounds Extremities: Yes: WNL Neurological: Yes: Alert, Oriented Labs: CBC, BMP 05/19/16 07:33 Discharge Summary Reason For Visit: SOB Current Active Problems CHF (congestive heart failure) (Acute) COPD (chronic obstructive pulmonary disease) (Acute) HTN (hypertension) (Acute) Shortness of breath (Acute) Condition: Fair - Home Medications Comprehensive Discharge Medication List: Ambulatory Orders Atorvastatin Ca [Lipitor] 40 mg PO HS 10/14/11 Budesonide/Formeterol Fumarate [SYMBICORT 160/4.5mcg -] 1 dose IH DAILY Losartan Potassium [Cozaar] 50 mg PO DAILY 10/14/11 Potassium Chloride [Klor-Con] 20 meq PO DAILY 10/14/11 Terazosin HCl 2 mg PO HS 10/14/11 Tiotropium [place] [Spiriva] 1 inh IH DAILY 10/14/11 Colchicine 0.6 mg PO DAILY #5 tablet 12/09/13 Diltiazem HCl [Diltiazem 24Hr Cd] 240 mg PO DAILY 11/26/14 Albuterol Sulfate Inhaler - [Ventolin HFA Inhaler -] 1 inh PO QID 05/17/16 Cilostazol [Pletal -] 100 mg PO DAILY 05/17/16 Warfarin Sodium [Coumadin] 5.5 mg PO HS 05/17/16 Furosemide [Lasix -] 80 mg PO DAILY #60 tablet 05/19/16 cleared by cardiology to be dc home
[2016-05-19] MEDS ORDERED: WARFARIN NA 3 MG TABLET ONE (17:00)
[2016-05-19] MEDS ORDERED: WARFARIN NA 2.5 MG TABLET (FP) ONE (17:00)
[2016-05-19] MEDS: WARFARIN NA 2.5 MG, WARFARIN NA 3 MG PO SCH (17:01)
[2016-05-19] MEDS ORDERED: APIXABAN 5 MG TABLET PO SCH (22:00)
== END 2016-05-19 17:40 | disposition home or self-care (01) | DRG 292 ==
LOC: FER 14:32 → FM/S 19:03
PROVIDERS: ADMIT Internal Medicine; ATTEND Internal Medicine
DX: I11.0 Hypertensive heart disease with heart failure (principal); I48.92 Unspecified atrial flutter; I50.31 Acute diastolic (congestive) heart failure; J44.9 Chronic obstructive pulmonary disease, unspecified; I35.0 Nonrheumatic aortic (valve) stenosis; I48.91 Unspecified atrial fibrillation; I42.8 Other cardiomyopathies; E78.5 Hyperlipidemia, unspecified; J45.909 Unspecified asthma, uncomplicated; N40.0 Benign prostatic hyperplasia without lower urinary tract symptoms; E78.00 Pure hypercholesterolemia, unspecified; K21.9 Gastro-esophageal reflux disease without esophagitis; E87.6 Hypokalemia; M10.9 Gout, unspecified; G47.39 Other sleep apnea; R60.0 Localized edema; M19.90 Unspecified osteoarthritis, unspecified site; Z87.891 Personal history of nicotine dependence
CPT/HCPCS: 36415; 71010-TC; 71020-TC; 80048; 80053; 81003; 81015; 82550; 83605; 83735; 83880; 84484; 85025; 85610; 85730; 87040; 93005; 93306-TC; 99285-25

== ENCOUNTER 2016-06-03 12:35 | Emergency (ER) | payer OTHER ==
[2016-06-03 12:40] VITALS: TEMP 98; BMI 34.1
--- NOTE | 2016-06-03 12:48 | PDOC ---
History of Present Illness - General Chief Complaint: Shortness of Breath Stated Complaint: LOW 02 SAT Time Seen by Provider: 06/03/16 12:46 - History of Present Illness Initial Comments: 06/03/16 15:22 Chief complaint: The patient was sent in by a visiting nurse because of low oxygen saturation. The patient himself has no complaints History of present illness: Patient notes recent increase in leg edema. Otherwise, he is chronically short of breath, which he states has not changed recently. He was admitted on May 17 for an exacerbation of CHF, discharged May 19. He has home oxygen prescribed, but has not used it lately because his machine has not been maintained. He is in the process of changing doctors. 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 Richar Dove, but he recently began seeing in [place]. He has severe COPD with a chronically low oxygen tension and elevated CO2, according to Dr. Dove. The visiting nurse today is new since his recent hospitalization, and this is the first time she has checked his oxygen saturation. It is possible she became alarmed at the low number, without realizing that the patient was really asymptomatic. Past medical history: CHF, COPD, CAD, HBP, gout Medications: Losartan, diltiazem, Pletal, Eliquis, terazosin, Lipitor, Lasix, potassium chloride, Symbicort, Ventolin, Spiriva. Social history: Patient lives with his daughter, limited ambulation due to shortness of breath, however, mental status is good and he provides himself partial self-care. No tobacco alcohol or nonprescription drugs Family history: Reviewed and noncontributory Physical exam: Alert oriented cooperative. Denies chest pain or increased shortness of breath. States only that his legs are somewhat more swollen than usual Afebrile, vital signs pulse of 98 regular, respirations of 22 and mildly labored , blood pressure 154/84, oxygen saturation 87% on room air. PERRLA, fundi benign, ENT clear Neck supple without bruit mass or nose Hyperresonant bilaterally. Decreased breath sounds but without wheezes rales or rhonchi. Air movement appears adequate CV S1 and S2 distant, 2/6 systolic ejection murmur left sternal border without radiation, pulses full, 2+ ankle edema, no bruits Abdomen mildly distended but soft without mass tenderness or organomegaly. Bowel sounds normal Neurological: Generalized weakness but no focal sensory or motor deficits. Cranial nerves intact. Patient ambulates slowly without signs of ataxia Impression: Patient with end-stage disease, COPD and CHF, chronically low oxygen tension and retention of carbon dioxide. No change in his breathing according to his own history and the history of his , and daughters, who are in attendance. Plan: Supplemental dose of diuretic. EKG, enzymes, chest x-ray and chemistries, CBC. Observation. Attempt to reinstate home oxygen. 06/03/16 16:51 Past History - Past Medical History Allergies/Adverse Reactions: Allergies Allergy/AdvReac Type Severity Reaction Status Date / Time No Known Drug Allergies Allergy Verified 05/17/16 14:33 Home Medications: Ambulatory Orders Atorvastatin Ca [Lipitor] 40 mg PO HS 10/14/11 Budesonide/Formeterol Fumarate [SYMBICORT 160/4.5mcg -] 1 dose IH DAILY Losartan Potassium [Cozaar] 50 mg PO DAILY 10/14/11 Potassium Chloride [Klor-Con] 20 meq PO DAILY 10/14/11 Terazosin HCl 2 mg PO HS 10/14/11 Tiotropium [place] [Spiriva] 1 inh IH DAILY 10/14/11 Colchicine 0.6 mg PO DAILY #5 tablet 12/09/13 Diltiazem HCl [Diltiazem 24Hr Cd] 240 mg PO DAILY 11/26/14 Albuterol Sulfate Inhaler - [Ventolin HFA Inhaler -] 1 inh PO QID 05/17/16 Cilostazol [Pletal -] 100 mg PO DAILY 05/17/16 Apixaban [Eliquis -] 5 mg PO BID #28 tablet 05/19/16 Furosemide [Lasix -] 80 mg PO DAILY #60 tablet 05/19/16 Anemia: No Asthma: Yes (2005) Cancer: No Cardiac Disorders: Yes (AORTIC STENOSIS,CARDIOMYOPATHY,CHF,AFIB/FLUTTER) CVA: No COPD: Yes (2005) CHF: Yes Dementia: No Diabetes: No GI Disorders: No Disorders: Yes (BPH) HTN: Yes Hypercholesterolemia: Yes Liver Disease: No Seizures: No Thyroid Disease: No - Surgical History Abdominal Surgery: No Appendectomy: Yes () Cardiac Surgery: No Cholecystectomy: No Lung Surgery: No Neurologic Surgery: No Orthopedic Surgery: No - Psycho/Social/Smoking Cessation Hx Anxiety: No Suicidal Ideation: No Smoking History: Former smoker Have you smoked in the past 12 months: No Number of Cigarettes Smoked Daily: 0 If you are a former smoker, when did you quit?: YEARS AGO Information on smoking cessation initiated: No Hx Alcohol Use: No Drug/Substance Use Hx: No Substance Use Type: None Hx Substance Use Treatment: No *Physical Exam - Vital Signs Last Vital Signs Temp Pulse Resp BP Pulse Ox 98 F 96 H 22 154/84 87 L 06/03/16 12:36 06/03/16 12:36 06/03/16 12:36 06/03/16 12:36 06/03/16 12:36 ED Treatment Course - LABORATORY CBC & Chemistry Diagram: 06/03/16 12:49 06/03/16 12:49 Medical Decision Making - Medical Decision Making 06/03/16 17:00 EKG, chest x-ray, and labs unchanged from prior hospitalization 1112. Observation of the patient on room air with no respiratory distress. A new prescription for home oxygen was phoned into his pharmacy, [email or web address]. His family will potato picker the oxygen concentrator this evening before the pharmacy closes. In the meantime, when their primary physician returns to her office next week, they will investigate another supplier of home oxygen that will work with Medicare. Although his respiratory status is tenuous, all indications are that he is at baseline, without recent significant exacerbation of his COPD or CHF, except for mild increase in his leg swelling. A supplemental dose of IV diuretic was administered in the emergency room. He is discharged ambulating adequately with stable respiratory and other hemodynamic status with his family to follow-up as directed. *DC/Admit/Observation/Transfer Diagnosis at time of Disposition: COPD (chronic obstructive pulmonary disease) Qualifiers: COPD type: unspecified COPD Qualified Code(s): J44.9 - Chronic obstructive pulmonary disease, unspecified - Discharge Dispostion Disposition: HOME Condition at time of disposition: Stable Admit: No - Patient Instructions Printed Discharge Instructions: DI for Chronic Obstructive Pulmonary Disease Additional Instructions: See your primary physician on Monday, and discuss obtaining further home oxygen treatment from Medicare Obtain a temporary oxygen supply from a local pharmacy, as we have discussed. Return to the ER if the breathing is worse or if signs of respiratory infection develop including fever/chills increased shortness of breath or increased cough with sputum production Otherwise see primary physician for regular checkups and as needed. Take all medications as prescribed in a timely fashion.
[2016-06-03 13:12] LABS: BASOPHIL 0.2 % (0-2.0); EOSINOPHIL 1.6 % (0-4.5); MCH 25.9 pg (25.7-33.7); MCHC 32.1 g/dl (32.0-35.9); MEAN CELL VOLUME 80.6 fl (80-96); MEAN PLT VOLUME 7.6 fl (7.5-11.1); NEUTROPHILS 66.1 % (42.8-82.8); PLATELET COUNT 282 K/MM3 (134-434); RDW 16.5 % (11.9-15.9); WHITE BLOOD COUNT 6.9 K/mm3 (4.0-10.8)
[2016-06-03 13:22] LABS: INR 1.63 (0.82-1.09); PROTHROMBIN TIME (PATIENT) 18.1 SEC (10.2-13.0)
[2016-06-03 13:41] LABS: ALBUMIN 3.8 g/dl (3.5-5.0); ALK PHOS 77 U/L (32-92); ANION GAP 8 (8-16); BILIRUBIN,TOTAL 0.4 mg/dl (0.2-1.0); CALCIUM 8.7 mg/dl (8.4-10.2); CO2 37 mmol/L (22-28); CREATININE 1.3 mg/dl (0.6-1.3); GLUCOSE,RANDOM 143 mg/dl (74-106); SGOT/AST 15 U/L (10-42); SGPT/ALT 13 U/L (10-40); TOT PROT 6.7 g/dl (6.4-8.3)
[2016-06-03 13:47] LABS: ALLENS TEST POSITIVE; ART PUNCT SITE RIGHT RADIAL; ARTERIAL BLD GAS O2 SATURATION 83.3 % (90-98.9); ARTERIAL BLOOD GAS BASE EXCESS 9.8 meq/l (-2-2); ARTERIAL BLOOD GAS HCO3 38.2 meq/L (22-26); ARTERIAL BLOOD GAS PO2 53.3 mmHg (70-100); LPM/O2% 2L; METHEMOGLOBIN 0.5 % (0.4-1.5); PT. ON O2? YES
[2016-06-03 13:48] LABS: TYPE OF O2 NASAL O2
[2016-06-03 13:49] LABS: TROPONIN I (DFP) 0.04 ng/ml (0.03-0.50)
[2016-06-03 13:50] LABS: ARTERIAL BLOOD GAS pH 7.33 (7.35-7.45)
[2016-06-03] MEDS ORDERED: ALBUTEROL SO4 2.5/IPRATROPIUM 0.5 INH SOL 3 ML VIAL.NEB. NEB ONE ×4 (14:40→15:03)
[2016-06-03] MEDS ORDERED: FUROSEMIDE 40 MG/4 ML INJECTABLE VIAL ONE (14:50)
[2016-06-03] MEDS ORDERED: FUROSEMIDE 40 MG/4 ML INJECTABLE VIAL IVPUSH ONE (14:50)
[2016-06-03 15:01] VITALS: BP 144/72; PULSE 85
[2016-06-03] MEDS ORDERED: PRESCRIPTION PAD 1 EACH EACH NR ONE (16:22)
[2016-06-03 16:45] LABS: ALLENS TEST POSITIVE; ART PUNCT SITE RIGHT RADIAL; ARTERIAL BLD GAS O2 SATURATION 69.4 % (90-98.9); ARTERIAL BLOOD GAS HCO3 37.7 meq/L (22-26); LPM/O2% 21%; METHEMOGLOBIN 0.4 % (0.4-1.5); PT. ON O2? NO; TYPE OF O2 ROOM AIR
[2016-06-03 16:46] LABS: ARTERIAL BLOOD GAS pH 7.32 (7.35-7.45)
[2016-06-03 16:47] LABS: ARTERIAL BLOOD GAS PO2 41.7 mmHg (70-100)
--- NOTE | 2016-06-06 12:25 | EKG ---
Test Reason : Blood Pressure : / mmHG Vent. Rate : 088 BPM Atrial Rate : 098 BPM P-R Int : 316 ms QRS Dur : 098 ms QT Int : 342 ms P-R-T Axes : 042 -25 110 degrees QTc Int : 413 ms SINUS RHYTHM with marked 1st degree AV block and PACs CANNOT RULE OUT INFERIOR INFARCT (CITED ON OR BEFORE 17-MAY-2016) ABNORMAL ECG WHEN COMPARED WITH ECG OF 17-MAY-2016 14:31, AL INTERVAL HAS INCREASED Sinus rhythm has replaced atrial flutter Confirmed by STALIN PERSON MD ([id number]) on 06/06/2016 12:25:12 PM Referred By: LUAN SELLERS Confirmed By:STALIN PERSON MD
== END 2016-06-03 17:10 | disposition home or self-care (01) ==
LOC: FER 12:35
PROC: 3E0F7GC Introduction of Other Therapeutic Substance into Respiratory Tract, Via Natural or Artificial Opening (ICD-10-PCS; principal; 2016-06-03)
PROC: 3E033GC Introduction of Other Therapeutic Substance into Peripheral Vein, Percutaneous Approach (ICD-10-PCS; 2016-06-03)
DX: J44.9 Chronic obstructive pulmonary disease, unspecified (principal); J45.909 Unspecified asthma, uncomplicated; I10 Essential (primary) hypertension; E78.00 Pure hypercholesterolemia, unspecified; Z87.891 Personal history of nicotine dependence; I48.91 Unspecified atrial fibrillation
CPT/HCPCS: 36415; 36600; 71010-TC; 80053; 82375; 82550; 82803; 83050; 83880; 84484; 85025; 85610; 93005; 94640; 96374; 99285-25

== ENCOUNTER 2017-05-07 10:19 | Emergency (ER) | payer OTHER ==
[2017-05-07 10:24] VITALS: BP 144/92; PULSE 68; BMI 34.9
[2017-05-07] MEDS ORDERED: OXYMETAZOLINE 0.05% NASAL SOLUTION 15 ML BOTTLE NS ONE (11:29)
--- NOTE | 2017-05-07 11:29 | PDOC ---
History of Present Illness - General Chief Complaint: Nasal Bleeding Stated Complaint: NOSEBLEED Time Seen by Provider: 05/07/17 10:54 - History of Present Illness Initial Comments: 05/07/17 14:33 Chief complaint: Nosebleed History of present illness: Bleeding from the right side of the nose since this morning. Heavy at first, slowing down, but still not resolved Review of systems: No headache, URI symptoms, sore throat, cough, chest pain, shortness of breath, abdominal pain, nausea, vomiting, diarrhea, dizziness or lightheadedness, unsteadiness of gait, visual or focal neurologic symptoms Past medical history: Atrial fibrillation on Eliquis. Frequent nosebleeds due to anticoagulant. Most recently treated last week with nasal packing, removed in several days by ENT specialist. However, patient was very uncomfortable with the packing and family would like to avoid repacking the nose now Social/family history: Lives with his , son lives nearby, considerable supervision by family and friends. Physical exam: Patient is alert oriented cheerful and cooperative in no acute distress Afebrile, vital signs stable. Blood pressure is not elevated. PERRLA, fundi benign, ears and throat clear. There is slight bleeding from the right side of the nose, bleeding site identified on the anterior septum. No septal hematoma. Neck supple without bruit mass or nodes Chest clear CV irregularly irregular 80/m 2/6 systolic ejection murmur Abdomen benign Neurological C2 to 12 intact. No focal sensory or motor deficits. Gait stable and unimpaired Impression: Recurrent nosebleeds due to vessel fragility, dryness, and Eliquis therapy Plan: Control bleeding with local measures. Try to avoid packing, according to the wishes of the family, observe. Past History - Past Medical History Allergies/Adverse Reactions: Allergies Allergy/AdvReac Type Severity Reaction Status Date / Time No Known Drug Allergies Allergy Verified 05/07/17 10:20 Home Medications: Ambulatory Orders Atorvastatin Ca [Lipitor] 40 mg PO HS 10/14/11 Budesonide/Formeterol Fumarate [SYMBICORT 160/4.5mcg -] 1 dose IH DAILY Losartan Potassium [Cozaar] 50 mg PO DAILY 10/14/11 Potassium Chloride [Klor-Con] 20 meq PO BID 10/14/11 Terazosin HCl 2 mg PO HS 10/14/11 Tiotropium [place] [Spiriva] 1 inh IH DAILY 10/14/11 Colchicine 0.6 mg PO DAILY #5 tablet 12/09/13 Diltiazem HCl [Diltiazem 24Hr Cd] 240 mg PO DAILY 11/26/14 Albuterol Sulfate Inhaler - [Ventolin HFA Inhaler -] 1 inh PO QID 05/17/16 Cilostazol [Pletal -] 100 mg PO BID 05/17/16 Apixaban [Eliquis -] 5 mg PO BID #28 tablet 05/19/16 Furosemide [Lasix -] 80 mg PO DAILY #60 tablet 05/19/16 Anemia: No Asthma: Yes (2005) Cancer: No Cardiac Disorders: Yes (AORTIC STENOSIS,CARDIOMYOPATHY,CHF,AFIB/FLUTTER) CVA: No COPD: Yes (2005) CHF: Yes Dementia: No Diabetes: No GI Disorders: No Disorders: Yes (BPH) HTN: Yes Hypercholesterolemia: Yes Liver Disease: No Seizures: No Thyroid Disease: No - Surgical History Abdominal Surgery: No Appendectomy: Yes () Cardiac Surgery: No Cholecystectomy: No Lung Surgery: No Neurologic Surgery: No Orthopedic Surgery: No - Suicide/Smoking/Psychosocial Hx Smoking History: Never smoked Have you smoked in the past 12 months: No Number of Cigarettes Smoked Daily: 0 If you are a former smoker, when did you quit?: YEARS AGO Information on smoking cessation initiated: No Hx Alcohol Use: No Drug/Substance Use Hx: No Substance Use Type: None Hx Substance Use Treatment: No *Physical Exam - Vital Signs Last Vital Signs Temp Pulse Resp BP Pulse Ox 68 18 144/92 05/07/17 10:20 05/07/17 10:20 05/07/17 10:20 Medical Decision Making - Medical Decision Making 05/07/17 14:37 A cotton pledget with Afrin was inserted into her right nares. After about 20 minutes, it was removed and the bleeding appeared to be controlled. Family was instructed regarding gentle pressure over the bridge of the nose, ice on the forehead, and rest. Bedrest was recommended and the family was again informed that the best way to ensure control of bleeding would be repacking, but if they wanted to avoid this, they would have to closely observe the patient and attempt to control bleeding by mechanical measures as instructed. They seemed to understand and agree, and the patient was discharged improved, in no significant pain or other distress, to follow-up as recommended. *DC/Admit/Observation/Transfer Diagnosis at time of Disposition: Epistaxis - Discharge Dispostion Disposition: HOME Condition at time of disposition: Improved Admit: No - Referrals Referrals: Finn Fink MD [Staff Physician] - - Patient Instructions Printed Discharge Instructions: DI for Nosebleed Additional Instructions: Return to ER if the bleeding recurs, is heavy, and is uncontrollable with gentle pressure and ice applied to the forehead. Otherwise follow-up with ENT specialist as directed. - Post Discharge Activity
[2017-05-07 12:58] VITALS: TEMP 97.4
== END 2017-05-07 12:58 | disposition home or self-care (01) ==
LOC: FER 10:19
DX: R04.0 Epistaxis (principal); I48.91 Unspecified atrial fibrillation; Z79.01 Long term (current) use of anticoagulants; Z87.891 Personal history of nicotine dependence; J45.909 Unspecified asthma, uncomplicated; I25.10 Atherosclerotic heart disease of native coronary artery without angina pectoris; I10 Essential (primary) hypertension; E78.00 Pure hypercholesterolemia, unspecified; N40.0 Benign prostatic hyperplasia without lower urinary tract symptoms
CPT/HCPCS: 99281-25